=== PATIENT | male | born 1935 | race Hispanic/Latino ===

== ENCOUNTER 2017-09-18 13:48 | Outpatient (CLI) | payer MEDICARE, OTHER | END 2017-09-18 13:49 | disposition home or self-care (01) | LOC: BICRAD 13:48 | PROVIDERS: ATTEND Family Medicine | DX: J44.9 Chronic obstructive pulmonary disease, unspecified (principal); R05 Cough; R91.8 Other nonspecific abnormal finding of lung field; I70.90 Unspecified atherosclerosis | CPT/HCPCS: 71046 ==